=== PATIENT | female | born 2000 | race Two or more races ===

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

== ENCOUNTER 2020-05-18 08:00 | Outpatient (CLI) | payer MEDICAID ==
[2020-05-18 17:53] LABS: BASOPHILS # (AUTO) 0.1 10^3/uL (0.0-0.1); EOSINOPHILS # (AUTO) 0.1 10^3/uL (0.0-0.7); EOSINOPHILS % (AUTO) 0.9 %; HGB - HEMOGLOBIN 11.9 g/dL (12.0-16.0); LYMPHOCYTES % (AUTO) 34.3 %; MEAN CORPUSCULAR HEMOGLOBIN 27.7 pg (27.0-31.0); MEAN CORPUSCULAR HGB CONC 32.4 g/dL (32.0-36.0); MEAN CORPUSCULAR VOLUME 85.5 fL (81.0-99.0); MEAN PLATELET VOLUME 11.4 fL (7.9-10.8); MONOCYTES # (AUTO) 0.4 10^3/uL (0.0-1.0); NEUTROPHILS # (AUTO) 3.3 10^3/uL (1.5-6.6); NEUTROPHILS % (AUTO) 56.5 %; PLT - PLATELET COUNT 327 10^3/uL (130-450); RED BLOOD COUNT 4.29 10^6/uL (4.20-5.40); RED CELL DISTRIBUTION WIDTH 13.3 % (12.0-15.0); WHITE BLOOD COUNT 5.8 x10^3/uL (4.8-10.8)
[2020-05-18 18:25] LABS: ALBUMIN 4.8 g/dL (3.2-5.5); ALBUMIN/GLOBULIN RATIO 1.7 (1.0-2.2); BILIRUBIN,TOTAL 0.6 mg/dL (0.2-1.0); CALCIUM 9.6 mg/dL (8.5-10.3); CREATININE 0.6 mg/dL (0.4-1.0); TOTAL PROTEIN 7.7 g/dL (6.7-8.2)
[2020-05-18 18:39] LABS: FERRITIN 15.2 ng/mL (11.0-306.8)
[2020-05-18 18:43] LABS: FOLATE 10.79 ng/mL (5.90 - >24.8)
== END 2020-05-18 23:59 | disposition home or self-care (01) ==
LOC: LAB.WCP 08:00
PROVIDERS: ATTEND Physician Assistant Medical
DX: Z00.00 Encounter for general adult medical examination without abnormal findings (principal); D64.9 Anemia, unspecified
CPT/HCPCS: 36415; 80053; 82607; 82728; 82746; 83540; 84443; 84466; 85025

== ENCOUNTER 2021-01-06 07:00 | Outpatient (CLI) | payer MEDICAID ==
--- NOTE | 2021-01-06 17:16 | XRAY Report ---
PROCEDURE: Knee 3 View LT INDICATIONS: STRAIN OF UNSPECIFIED MUSCLES, AND TENDONS OF L LOWER LEG TECHNIQUE: 3 views of the left knee(s) were acquired. COMPARISON: None. FINDINGS: Bones: No fractures or dislocations. No suspicious bony lesions. Soft tissues: No joint effusion. No suspicious soft tissue calcifications. IMPRESSION: No trauma found, no malalignment seen. No effusion or loose body identified. Reviewed by: Kenny Hale MD on 01/06/2021 5:14 PM PST Approved by: Kenny Hale MD on 01/06/2021 5:14 PM PST Station ID: [id number]
== END 2021-01-06 23:59 | disposition home or self-care (01) ==
LOC: DI.N 07:00
PROVIDERS: ATTEND Nurse Practitioner
DX: S86.912A Strain of unspecified muscle(s) and tendon(s) at lower leg level, left leg, initial encounter (principal)

== ENCOUNTER 2021-11-17 20:13 | Emergency (ER) | payer MEDICAID ==
[2021-11-17] MEDS ORDERED: LIDOCAINE 2%-EPI 1:100000 20 ML MDV SUBQ STA (20:52)
--- NOTE | 2021-11-17 20:57 | ED Physician Documentation ---
History of Present Illness - Stated complaint Stated Complaint: BUMP ON REAR - Chief complaint Chief Complaint: Wound - History obtained from History obtained from: Patient - History of Present Illness Timing: Today Pain level max: 7 Pain level now: 5 - Additonal information Additional information: Patient is a 21-year-old female who states that she has had redness and swelling to the left buttock for the past several days. Worse with sitting and palpation. Nothing makes it better. Has never had similar symptoms previously. Denies any possibility of . Review of Systems Constitutional: denies: Fever, Chills GI: denies: Vomiting, Diarrhea Skin: denies: Rash Musculoskeletal: denies: Neck pain, Back pain Neurologic: denies: Headache PD PAST MEDICAL HISTORY - Past Medical History Past Medical History: Yes Cardiovascular: None Respiratory: Asthma Neuro: None Endocrine/Autoimmune: None Musculoskeletal: None - Past Surgical History Past Surgical History: Yes HEENT: Tonsil/Adenoidectomy - Present Medications Home Medications: Ambulatory Orders Medication Instructions Recorded Confirmed Albuterol Sulfate [Proair Hfa 2 puffs IH QID #1 hfa.aer.ad 03/07/16 08/07/17 Inhaler] DULoxetine [Cymbalta] 20 mg PO DAILY 11/17/21 11/17/21 Ibuprofen [Motrin] 800 mg PO Q8H PRN #30 tablet 11/17/21 Sulfamethox/Trimeth 800/160 1 each PO BID #14 tablet 11/17/21 [Bactrim Ds 800/160] cephALEXin [Keflex] 500 mg PO Q6H #28 cap 11/17/21 - Allergies Allergies/Adverse Reactions: Allergies Allergy/AdvReac Type Severity Reaction Status Date / Time No Known Drug Allergies Allergy Verified 11/17/21 20:19 - Social History Does the pt smoke?: No Smoking Status: Never smoker Does the pt drink ETOH?: No Does the pt have substance abuse?: No - Immunizations Immunizations are current?: Yes PD ED PE NORMAL - Vitals Vital signs reviewed: Yes - General General: Alert and oriented X 3, No acute distress - Derm Derm: Warm and dry - Extremities Extremities: Other (Erythema, induration and swelling to the left inferior medial buttock. Small amount of purulent drainage.) - Neuro Neuro: Alert and oriented X 3 - Psych Psych: Normal mood, Normal affect Results - Vitals Vitals: Vital Signs - 24 hr 11/17/21 11/17/21 20:18 21:32 Temperature 36.8 C 36.7 C Heart Rate 99 88 Respiratory 16 16 Rate Blood Pressure 128/80 125/79 O2 Saturation 100 99 Oxygen O2 Source Room air Procedures - Abscess I&D (location) Left buttock Preparation: Confirmed with ultrasound, Chlorhexadine, Lidocaine 2%, With epi Incision: Incised with scalpel, Purulent drainage, Packed, Culture obtained Other: Pt tolerated well, Dressing applied, Antibiotic prescribed PD MEDICAL DECISION MAKING - ED course Complexity details: considered differential, d/w patient ED course: 21-year-old female with a left buttock abscess. Incised and drained. Tolerated well. Wound culture sent. We will place on antibiotics and have her return in 2 days for a wound check. Patient counseled regarding signs and symptoms for which I believe and urgent re-evaluation would be necessary. Patient with good understanding of and agreement to plan and is comfortable going home at this time This document was made in part using voice recognition software. While efforts are made to proofread this document, sound alike and grammatical errors may occur. Departure - Departure Disposition: 01 Home, Self Care Clinical Impression: Abscess Condition: Good Instructions: ED Abscess IandD Follow-Up: Return,here in 2 days for recheck [Other] Prescriptions: Sulfamethox/Trimeth 800/160 [Bactrim Ds 800/160] 1 each PO BID #14 tablet cephALEXin [Keflex] 500 mg PO Q6H #28 cap Ibuprofen [Motrin] 800 mg PO Q8H PRN #30 tablet PRN Reason: PAIN &/OR FEVER Comments: Take all antibiotics until gone. Return in 2 days for wound check. If the packing falls out, that is okay. We want to ensure that this continues to drain. Return sooner if you worsen. Your prescriptions were sent to [facility] in [place].
[2021-11-17] MEDS ORDERED: LIDOCAINE 2%-EPI 1:100000 20 ML MDV ONE (21:14)
[2021-11-17] MEDS ORDERED: SULFAMETH/TRIMETH DS 800/160 MG TABLET PO STA (21:24)
[2021-11-17] MEDS ORDERED: cephALEXin 250 MG CAPSULE PO STA (21:24)
[2021-11-17 21:39] VITALS: BP 125/79
== END 2021-11-17 21:47 | disposition home or self-care (01) ==
LOC: ED 20:13
DX: L02.31 Cutaneous abscess of buttock (principal)
CPT/HCPCS: 10061; 87070; 87181; 87205; 99282; 99283; A9270

== ENCOUNTER 2021-12-20 08:00 | Outpatient (CLI) | payer MEDICAID ==
[2021-12-22 10:07] LABS: NIL 0.02 IU/mL; TB1-NIL <0.00 IU/mL; TB2-NIL <0.00 IU/mL
== END 2021-12-20 23:59 | disposition home or self-care (01) ==
LOC: LAB.WCP 08:00
PROVIDERS: ATTEND Physician Assistant Medical
DX: Z02.1 Encounter for pre-employment examination (principal)
CPT/HCPCS: 36415; 86480

== ENCOUNTER 2023-06-15 14:06 | Outpatient (CLI) | payer MEDICAID ==
[2023-06-15 18:03] LABS: BASOPHILS # (AUTO) 0.1 10^3/uL (0.0-0.1); BASOPHILS % (AUTO) 1.2 %; EOSINOPHILS # (AUTO) 0.1 10^3/uL (0.0-0.7); EOSINOPHILS % (AUTO) 0.9 %; HCT - HEMATOCRIT 35.6 % (37.0-47.0); HGB - HEMOGLOBIN 11.3 g/dL (12.0-16.0); LYMPHOCYTES # (AUTO) 2.1 10^3/uL (1.5-3.5); LYMPHOCYTES % (AUTO) 35.5 %; MEAN CORPUSCULAR HEMOGLOBIN 27.3 pg (27.0-31.0); MEAN CORPUSCULAR HGB CONC 31.7 g/dL (32.0-36.0); MEAN PLATELET VOLUME 11.6 fL (7.9-10.8); MONOCYTES # (AUTO) 0.3 10^3/uL (0.0-1.0); MONOCYTES % (AUTO) 5.2 %; NEUTROPHILS # (AUTO) 3.3 10^3/uL (1.5-6.6); PLT - PLATELET COUNT 313 10^3/uL (130-450); RED BLOOD COUNT 4.14 10^6/uL (4.20-5.40); RED CELL DISTRIBUTION WIDTH 14.2 % (12.0-15.0); WHITE BLOOD COUNT 5.8 x10^3/uL (4.8-10.8)
[2023-06-15 18:25] LABS: ALBUMIN 4.6 g/dL (3.2-5.5); ALBUMIN/GLOBULIN RATIO 1.6 (1.0-2.2); ALKALINE PHOSPHATASE 59 IU/L (42-121); ALT ALANINE AMINOTRANSFERASE 11 IU/L (10-60); AST ASPARTATE AMINOTRANSFERASE 16 IU/L (10-42); BILIRUBIN,TOTAL 0.7 mg/dL (0.2-1.0); BUN - BLOOD UREA NITROGEN 8 mg/dL (6-20); CALCIUM 9.8 mg/dL (8.5-10.3); CARBON DIOXIDE - CO2 26 mmol/L (21-32); CHLORIDE 106 mmol/L (101-111); CHOL/HDL RATIO 3.2 (<4.4); CHOLESTEROL 180 mg/dL; CREATININE 0.7 mg/dL (0.6-1.3); GFR - MDRD 105 (>89); GLUCOSE 83 mg/dL (74-104); HDL CHOLESTEROL 56 mg/dL; LDL CHOLESTEROL,CALCULATED 113 mg/dL; POTASSIUM 3.7 mmol/L (3.5-4.5); SODIUM 138 mmol/L (135-145); TOTAL PROTEIN 7.4 g/dL (6.4-8.9); TRIGLYCERIDES 54 mg/dL (48-352); VLDL CHOLESTEROL 11 mg/dL
== END 2023-06-15 14:07 | disposition home or self-care (01) ==
LOC: LAB.N 14:06
PROVIDERS: ATTEND Nurse Practitioner
DX: F41.9 Anxiety disorder, unspecified (principal); F32.A Depression, unspecified; Z13.220 Encounter for screening for lipoid disorders; D64.9 Anemia, unspecified
CPT/HCPCS: 36415; 80053; 80061; 83721; 85025

== ENCOUNTER 2023-09-27 10:02 | Outpatient (CLI) | payer MEDICAID ==
[2023-09-28 07:10] LABS: HEPATITIS B SURFACE AB QUANT <3.1 mIU/mL (Immunity>9.9)
[2023-09-28 08:10] LABS: MEASLES ANTIBODIES IGG 39.9 AU/mL (Immune >16.4); MUMPS ANTIBODIES IGG <9.0 AU/mL (Immune >10.9); VARICELLA-ZOSTER AB IGG 612 index (Immune >165)
== END 2023-09-27 10:03 | disposition home or self-care (01) ==
LOC: LAB.N 10:02
PROVIDERS: ATTEND Nurse Practitioner
DX: Z01.84 Encounter for antibody response examination (principal)
CPT/HCPCS: 36415; 81599; 86317; 86480; 86735; 86762; 86765; 86787